=== PATIENT | female | born 1980 | race Caucasian/White ===

== ENCOUNTER 2016-09-21 22:20 | Emergency (ER) | payer BC, OTHER ==
[~2016-09-21] VITALS: Ht 165.1 cm; Wt 82.6 kg
[2016-09-21] MEDS ORDERED: VENTOLIN HFA 1818 GM INH (22:29)
[2016-09-21] MEDS ORDERED: QVAR8.7 G1 IH (22:29)
[2016-09-21] MEDS ORDERED: XANAX 0.5 MG0.5 MG PO (22:29)
[2016-09-21] MEDS ORDERED: TRINATE TABLET1 TAB PO (22:29)
[2016-09-22] MEDS ORDERED: AUGMENTIN 875875 MG PO (00:06)
[2016-09-22 00:16] VITALS: BP 146/105
== END 2016-09-22 00:19 | disposition home or self-care (01) ==
LOC: ER 22:20
DX: S01.511A Laceration without foreign body of lip, initial encounter (principal); Z88.1 Allergy status to other antibiotic agents; W01.198A Fall on same level from slipping, tripping and stumbling with subsequent striking against other object, initial encounter; Y93.89 Activity, other specified; Y92.89 Other specified places as the place of occurrence of the external cause; Y99.8 Other external cause status